=== PATIENT | male | born 1975 | race Caucasian/White ===

== ENCOUNTER 2018-02-09 07:42 | Observation (INO) | payer SELFPAY, MEDICAID ==
[2018-02-09] MEDS: ASPIRIN 325 MG TAB PO (09:06)
[2018-02-09] MEDS: NITROGLYCERIN 2% 1 GM OINT PKT TD (09:06)
[2018-02-09 09:37] LABS: ADD MAN DIFF? NO
[2018-02-09 09:40] LABS: WHITE BLOOD COUNT 6.5 10^3/ul (4.8-10.8)
[2018-02-09 09:40] LABS: BASOPHIL # 0.1 10^3/ul (0.0-0.1); BASOPHILS % 0.9 % (0.0-2.0); EOSINOPHILS # 0.2 10^3/ul (0.0-0.5); EOSINOPHILS % 2.6 % (0.0-7.0); HEMATOCRIT 43.5 % (42.0-52.0); HEMOGLOBIN 14.9 g/dl (14.0-18.0); LYMPHOCYTES % 30.7 % (15.0-51.0); MEAN CORPUSCULAR HEMOGLOBIN 29.2 pg (29.0-33.0); MEAN CORPUSCULAR HGB CONC 34.3 g/dl (32.0-37.0); MEAN CORPUSCULAR VOLUME 85.3 fl (82.0-101.0); MONOCYTE # 0.5 10^3/ul (0.3-0.9); MONOCYTES % 8.3 % (0.0-11.0); NEUTROPHIL # 3.7 10^3/ul (1.6-7.5); NEUTROPHILS % 56.9 % (39.0-77.0); PLATELET COUNT 213 10^3/UL (140-415); RED CELL DISTRIBUTION WIDTH 12.6 % (11.5-14.5)
[2018-02-09 09:48] LABS: ALANINE AMINOTRANSFERASE 67 IU/L (13-69); ALBUMIN 4.7 g/dl (3.3-4.9); ALBUMIN/GLOBULIN RATIO 1.88; ALKALINE PHOSPHATASE 58 IU/L (42-121); ANION GAP 16 (8-16); ASPARTATE AMINO TRANSFERASE 32 IU/L (15-46); BILIRUBIN,INDIRECT 0.6 mg/dl (0-1.1); BILIRUBIN,TOTAL 0.6 mg/dl (0.2-1.3); BLOOD UREA NITROGEN 12 mg/dl (7-20); CALCIUM 9.2 mg/dl (8.4-10.2); CARBON DIOXIDE 27 mmol/L (21-31); CHLORIDE 105 mmol/L (97-110); GLUCOSE 94 mg/dl (70-220); SODIUM 144 mmol/L (135-144); TOTAL PROTEIN 7.2 g/dl (6.1-8.1)
[2018-02-09 10:10] LABS: TROPONIN-I < 0.012 ng/ml (0.000-0.120)
[2018-02-09] MEDS: IOHEXOL 100 ML ×2 (10:36→16:52)
[2018-02-09] MEDS: SOD CHLORIDE 0.9% 100 ML ×2 (10:36→16:52)
[2018-02-09] MEDS ORDERED: ONDANSETRON 4 MG INJ IV (11:00)
[2018-02-09] MEDS ORDERED: ACETAMINOPHEN 325 MG TAB PO ×2 (11:00→12:00)
[2018-02-09] MEDS ORDERED: NACL 0.9% 3 ML SYG IV (12:00)
[2018-02-09 12:24] LABS: HEMOGLOBIN A1C 5.1 % (0-5.9)
[2018-02-09 12:28] LABS: B-TYPE NATRIURETIC PEPTIDE 14 PG/ML (0-125)
[2018-02-09] MEDS: ONDANSETRON 4 MG INJ IV (13:05)
[2018-02-09] MEDS: ENOXAPARIN 40 MG/0.4 ML SYG SC (13:06)
[2018-02-09 13:07] LABS: FREE T4 (FREE THYROXINE) 1.05 ng/dl (0.64-1.79)
[2018-02-09] MEDS: METOPROLOL 100 MG TAB PO (13:15)
[2018-02-09 13:48] LABS: AMPHETAMINE/METHAMPHETAMINE Negative (NEGATIVE)
[2018-02-09 14:04] LABS: BARBITURATES NEGATIVE (NEGATIVE); BENZODIAZEPINES NEGATIVE (NEGATIVE); CANNABINOIDS NEGATIVE (NEGATIVE); OPIATES POSITIVE (NEGATIVE)
[2018-02-09 14:05] LABS: COCAINE NEGATIVE (NEGATIVE)
[2018-02-09] MEDS: METOPROLOL 50 MG TAB PO (14:23)
[2018-02-09] MEDS: HYDROCODONE/APAP (5/325) TAB PO (14:25)
[2018-02-09] MEDS: SOD CHLORIDE 0.9% 1,000 ML IV (14:25)
[2018-02-09 15:24] LABS: CREATINE KINASE 90 IU/L (23-200)
[2018-02-09 15:37] LABS: CK INDEX 0.3
[2018-02-09 15:52] LABS: CK-MB 0.28 ng/ml (0.0-2.4); TROPONIN-I < 0.012 ng/ml (0.000-0.120)
[2018-02-09] MEDS: NITROGLYCERIN AEROSOL (4.9 GM) (16:25)
[2018-02-09] MEDS: HYDROmorphONE 1 MG/ML SYG IV (16:58)
[2018-02-09] MEDS ORDERED: ACET/BUTAL/CAFF TAB PO (17:00)
[2018-02-09 22:38] LABS: CREATINE KINASE 84 IU/L (23-200)
[2018-02-09 22:50] LABS: CK INDEX 0.4
[2018-02-09 23:00] LABS: TROPONIN-I < 0.012 ng/ml (0.000-0.120)
[2018-02-09 23:01] LABS: CK-MB 0.33 ng/ml (0.0-2.4)
[2018-02-10 06:33] LABS: ADD MAN DIFF? NO
[2018-02-10 06:41] LABS: WHITE BLOOD COUNT 8.3 10^3/ul (4.8-10.8)
[2018-02-10 06:41] LABS: BASOPHIL # 0.1 10^3/ul (0.0-0.1); BASOPHILS % 0.7 % (0.0-2.0); EOSINOPHILS # 0.2 10^3/ul (0.0-0.5); EOSINOPHILS % 2.4 % (0.0-7.0); HEMATOCRIT 42.3 % (42.0-52.0); HEMOGLOBIN 14.5 g/dl (14.0-18.0); LYMPHOCYTES # 2.5 10^3/ul (0.8-2.9); LYMPHOCYTES % 30.5 % (15.0-51.0); MEAN CORPUSCULAR HEMOGLOBIN 29.5 pg (29.0-33.0); MEAN CORPUSCULAR HGB CONC 34.3 g/dl (32.0-37.0); MEAN CORPUSCULAR VOLUME 86.2 fl (82.0-101.0); MEAN PLATELET VOLUME 10.1 fl (7.4-10.4); MONOCYTE # 0.8 10^3/ul (0.3-0.9); NEUTROPHIL # 4.7 10^3/ul (1.6-7.5); NEUTROPHILS % 56.8 % (39.0-77.0); PLATELET COUNT 220 10^3/UL (140-415); RED BLOOD COUNT 4.91 10^6/ul (4.70-6.10); RED CELL DISTRIBUTION WIDTH 12.9 % (11.5-14.5)
[2018-02-10 07:13] LABS: INR 0.99; PARTIAL THROMBOPLASTIN TIME 29.5 Sec (25.0-35.0); PROTIME 13.2 Sec (11.9-14.9)
[2018-02-10 07:19] LABS: ALBUMIN 5.2 g/dl (3.3-4.9); ALBUMIN/GLOBULIN RATIO 2.16; ALKALINE PHOSPHATASE 234 IU/L (42-121); ANION GAP 20 (8-16); ASPARTATE AMINO TRANSFERASE 135 IU/L (15-46); BILIRUBIN,INDIRECT 0.8 mg/dl (0-1.1); BILIRUBIN,TOTAL 0.8 mg/dl (0.2-1.3); BLOOD UREA NITROGEN 13 mg/dl (7-20); CALCIUM 9.1 mg/dl (8.4-10.2); CARBON DIOXIDE 24 mmol/L (21-31); CHLORIDE 103 mmol/L (97-110); CREATININE 0.91 mg/dl (0.61-1.24); GLUCOSE 83 mg/dl (70-220); POTASSIUM 4.3 mmol/L (3.5-5.1); SODIUM 143 mmol/L (135-144); TOTAL PROTEIN 7.6 g/dl (6.1-8.1)
[2018-02-10 07:20] LABS: CHOL/HDL RATIO 4.1 RATIO; CHOLESTEROL 150 mg/dl (100-200); CREATINE KINASE 85 IU/L (23-200); HDL CHOLESTEROL 36 mg/dl (27-67); LDL CHOLESTEROL,CALCULATED 73 mg/dl; TRIGLYCERIDES 205 mg/dl (0-149)
[2018-02-10 07:26] LABS: ALANINE AMINOTRANSFERASE < 6 IU/L (13-69)
[2018-02-10 07:33] LABS: CK INDEX 0.3; CK-MB 0.27 ng/ml (0.0-2.4); TROPONIN-I < 0.012 ng/ml (0.000-0.120)
[2018-02-10 07:51] LABS: PHOSPHORUS 4.5 mg/dl (2.5-4.9)
[2018-02-10] MEDS: ASPIRIN 81 MG TAB PO (09:21)
[2018-02-10] MEDS: ENOXAPARIN 40 MG/0.4 ML SYG SC (09:26)
[2018-02-10] MEDS: AMLODIPINE 5 MG TAB PO (09:30)
== END 2018-02-10 12:04 | disposition home or self-care (01) ==
LOC: E/R 07:42 → MS3 11:00
DX: R07.89 Other chest pain (principal); I10 Essential (primary) hypertension; E78.5 Hyperlipidemia, unspecified; E66.9 Obesity, unspecified; Z68.41 Body mass index [BMI] 40.0-44.9, adult; G43.909 Migraine, unspecified, not intractable, without status migrainosus; Z72.0 Tobacco use
CPT/HCPCS: 36415; 71275; 75574; 80053; 80061; 80307; 82550; 82553; 83036; 83735; 83880; 84100; 84439; 84443; 84484; 85025; 85610; 85730; 93005; 93306; 96372; 96374; 96375; 99285-25; G0378